=== PATIENT | male | born 1940 | race Caucasian/White ===

== ENCOUNTER 2018-06-10 14:11 | Emergency (ER) | payer OTHER ==
[~2018-06-10] VITALS: Ht 172.7 cm; Wt 65.9 kg
[2018-06-10 14:18] VITALS: Ht 172.7 cm; Wt 65.9 kg
[2018-06-10] MEDS ORDERED: LOPRESSOR25 MG PO (14:23)
[2018-06-10] MEDS ORDERED: ZOCOR40 MG PO (14:23)
[2018-06-10] MEDS ORDERED: OMEPRAZOLE20 M1 PO (14:24)
[2018-06-10 14:52] LABS: BASOPHILS 0.5 % (0-2); EOSINOPHILS 3.4 % (0-7); HEMATOCRIT 42.9 % (42.0-54.0); HEMOGLOBIN 14.6 g/dL (13.5-17.5); IMMATURE GRANULOCYTES 0.2 % (0-5); LYMPHOCYTES 21.7 % (15-50); MCH 32.2 pg (26.0-34.0); MCV 94.5 fL (80.0-100.0); MEAN PLATELET VOLUME 9.1 fL (7.4-10.4); MONOCYTES 7.5 % (2-11); NEUTROPHILS 66.7 % (40-80); PLATELET COUNT 210 10x3/uL (130-400); RBC 4.54 10x6/uL (4.20-6.10); RDW 13.3 % (11.5-14.5); WBC 6.5 10x3/uL (4.8-10.8)
[2018-06-10 15:16] LABS: ALBUMIN 3.7 g/dL (3.4-5.0); ALKALINE PHOSPHATASE 63 U/L (46-116); ALT (SGPT) 24 U/L (10-68); CALC OSMOLALITY 280 mosm/kg (275-300); CALCIUM 9.3 mg/dL (8.5-10.1); CARBON DIOXIDE 31.3 mmol/L (21.0-32.0); CHLORIDE - SERUM 103 mmol/L (98-107); CREATININE - SERUM 1.1 mg/dL (0.6-1.3); GLUCOSE 113 mg/dL (74-106); POTASSIUM - SERUM 4.2 mmol/L (3.5-5.1); PROTEIN - SERUM 7.6 g/dL (6.4-8.2); SODIUM 140 mmol/L (136-145); UREA NITROGEN 14 mg/dL (7-18); eGFR NON AFRICAN AMERICAN 68 mL/min (90-120)
[2018-06-10 15:31] LABS: CKMB 1.2 U/L (0.0-3.6)
[2018-06-10 15:35] LABS: TROPONIN-I < 0.017 ng/mL (0.000-0.060)
[2018-06-10 17:08] VITALS: BP 121/75
== END 2018-06-10 16:56 | disposition home or self-care (01) ==
LOC: D.ER 14:11
PROVIDERS: Emergency Medicine
DX: R07.9 Chest pain, unspecified (principal)

== ENCOUNTER 2018-06-22 23:30 | Emergency (ER) | payer OTHER ==
[~2018-06-22] VITALS: Ht 172.7 cm; Wt 70.5 kg
[~2018-06-22 23:30] MED LIST: LOPRESSOR25 MG PO; OMEPRAZOLE20 M1 PO; ZOCOR40 MG PO
[2018-06-22 23:33] VITALS: Ht 172.7 cm; Wt 70.5 kg
[2018-06-23] MEDS ORDERED: ACETAMINOPHEN500 M1 PO (02:12)
[2018-06-23] MEDS ORDERED: IBUPROFEN800 MG PO (02:12)
[2018-06-23] MEDS ORDERED: CYCLOBENZAPRINE10 MG PO (02:12)
[2018-06-23 02:51] VITALS: BP 140/77
== END 2018-06-23 02:28 | disposition home or self-care (01) ==
LOC: D.ER 23:30
DX: M25.561 Pain in right knee (principal); I10 Essential (primary) hypertension

== ENCOUNTER 2021-05-23 17:04 | Observation (INO) | payer OTHER ==
[~2021-05-23] VITALS: Ht 172.7 cm; Wt 70.9 kg
[~2021-05-23 17:04] MED LIST changes: +ACETAMINOPHEN500 M1 PO; +CYCLOBENZAPRINE10 MG PO; +IBUPROFEN800 MG PO
[2021-05-23 17:10] VITALS: Ht 172.7 cm; Wt 70.9 kg
[2021-05-23 17:47] LABS: CALC OSMOLALITY 281 mosm/kg (275-300); CALCIUM 8.8 mg/dL (8.5-10.1); CARBON DIOXIDE 29.1 mmol/L (21.0-32.0); CHLORIDE - SERUM 104 mmol/L (98-107); CREATININE - SERUM 1.4 mg/dL (0.6-1.3); GLUCOSE 125 mg/dL (74-106); POTASSIUM - SERUM 4.3 mmol/L (3.5-5.1); SODIUM 140 mmol/L (136-145); UREA NITROGEN 19 mg/dL (7-18); eGFR NON AFRICAN AMERICAN 51 mL/min (90-120)
[2021-05-23 18:05] LABS: ALBUMIN 3.4 g/dL (3.4-5.0); ALKALINE PHOSPHATASE 69 U/L (30-120); ALT (SGPT) 25 U/L (10-68); BILIRUBIN - TOTAL 0.42 mg/dL (0.2-1.3); CKMB 1.6 U/L (0.0-3.6); CREATINE KINASE 112 UL (21-232); MAGNESIUM - SERUM 2.6 mg/dL (1.8-2.4); PROTEIN - SERUM 7.3 g/dL (6.4-8.2)
[2021-05-23 18:06] LABS: TROPONIN-I < 0.017 ng/mL (0.000-0.060)
[2021-05-23 18:07] LABS: BASOPHILS 0.5 % (0-2); EOSINOPHILS 4.1 % (0-7); HEMATOCRIT 41.6 % (42.0-54.0); HEMOGLOBIN 13.9 g/dL (13.5-17.5); LYMPHOCYTES 14.5 % (15-50); MCH 31.9 pg (26.0-34.0); MCHC 33.4 g/dL (31.0-37.0); MCV 95.6 fL (80.0-100.0); MONOCYTES 15.9 % (2-11); RBC 4.34 10x6/uL (4.20-6.10); RDW 14.1 % (11.5-14.5); WBC 8.7 10x3/uL (4.8-10.8)
[2021-05-23 18:09] LABS: PLATELET COUNT 272 10x3/uL (130-400)
[2021-05-23 19:35] VITALS: BP 127/71
[2021-05-23 21:14] LABS: CKMB 1.3 U/L (0.0-3.6); CREATINE KINASE 102 UL (21-232); TROPONIN-I 0.026 ng/mL (0.000-0.060)
[2021-05-23 21:30] VITALS: BP 118/71
[2021-05-23 23:00] VITALS: BP 123/79
[2021-05-24] VITALS (8 sets, daily range): BP systolic 103–131; BP diastolic 49–69
--- NOTE | 2021-05-24 01:05 | NUR ---
REPORT GIVEN TO JACLYN JAMES
[2021-05-24 03:06] LABS: EOSINOPHILS 5.6 % (0-7); HEMATOCRIT 39.1 % (42.0-54.0); HEMOGLOBIN 13.2 g/dL (13.5-17.5); LYMPHOCYTES 14.3 % (15-50); MCH 32.4 pg (26.0-34.0); MCHC 33.9 g/dL (31.0-37.0); MCV 95.7 fL (80.0-100.0); MEAN PLATELET VOLUME 7.2 fL (7.4-10.4); MONOCYTES 13.8 % (2-11); NEUTROPHILS 65.3 % (40-80); PLATELET COUNT 248 10x3/uL (130-400); RBC 4.09 10x6/uL (4.20-6.10); RDW 13.8 % (11.5-14.5)
[2021-05-24 03:42] LABS: ALKALINE PHOSPHATASE 63 U/L (30-120); ALT (SGPT) 22 U/L (10-68); BILIRUBIN - TOTAL 0.52 mg/dL (0.2-1.3); CALC OSMOLALITY 281 mosm/kg (275-300); CALCIUM 8.4 mg/dL (8.5-10.1); CARBON DIOXIDE 26.7 mmol/L (21.0-32.0); CHLORIDE - SERUM 105 mmol/L (98-107); CKMB 1.1 U/L (0.0-3.6); CREATINE KINASE 88 UL (21-232); CREATININE - SERUM 1.2 mg/dL (0.6-1.3); GLUCOSE 115 mg/dL (74-106); PROTEIN - SERUM 6.6 g/dL (6.4-8.2); SODIUM 140 mmol/L (136-145); T4 THYROXIN - FREE 1.09 ng/dL (0.76-1.46); THYROID STIMULATING HORMONE 0.95 uIU/mL (0.36-3.74); TROPONIN-I < 0.017 ng/mL (0.000-0.060); UREA NITROGEN 18 mg/dL (7-18); eGFR NON AFRICAN AMERICAN 61 mL/min (90-120)
--- NOTE | 2021-05-24 04:13 | NUR ---
PT LYING IN BED RESTING AT THIS TIME. BREATHS EVEN, NO ACUTE DISTRESS NOTED, BD IN LOWEST POSITION, CALL LIGHT WITHIN REACH
[2021-05-24 08:34] LABS: CKMB 0.9 U/L (0.0-3.6); CREATINE KINASE 83 UL (21-232)
[2021-05-24 08:35] LABS: TROPONIN-I < 0.017 ng/mL (0.000-0.060)
--- NOTE | 2021-05-24 08:53 | HP ---
PATIENT: WILLIAM MICHEL MEDICAL RECORD: [id number] ACCOUNT: [id number] LOCATION:[facility] ShelleyT03- : 36 ADMISSION DATE: 05/23/21 PCP: LNADY TO MD HISTORY AND PHYSICAL EXAMINATION CHIEF COMPLAINT: Fast heart rate. HISTORY OF PRESENT ILLNESS: This is an 81-year-old white male who is followed by nurse practitioner locally presented to the hospital with a fast heart rate. The patient had been working outside at his home for a couple of hours earlier in the day, he came in. He and his went and got something to eat and then this afternoon his heart rate became very fast around 150 beats per minute. It did not let up and EMS brought him here with a heart rate of 165 beats a minute. EKG showed atrial flutter with a 2:1 block. He was placed on diltiazem drip and this got his heart rate down. He is admitted for further evaluation and cardiology has been consulted. PAST MEDICAL HISTORY: He has hypertension. He has a history of hyperlipidemia and he has BPH and he has some heartburn. The patient also states a couple of weeks ago he was diagnosed with S[place] spotted fever. He was treated with an antibiotic and completed that course. He is not sure what it was. He was also prescribed a methylprednisolone Dosepak and he did not complete that as he said he had an episode of tachycardia then with his heart rate going to 150 beats and that lasted about 15 minutes and then resolved. He has not had another episode of this fast heart rate until today. PAST SURGICAL HISTORY: He has had cataract repair. He has had eyelid surgery. He has had left shoulder repair. He has had right foot surgery times 2. He has had esophageal dilatation. DRUG ALLERGIES: None known. HOME MEDICATIONS: Metoprolol tartrate 25 mg twice a day, Simvastatin 40 mg once a day, omeprazole 20 mg once a day, and tamsulosin 0.4 mg once a day. HABITS: He is a former smoker. No alcohol or drugs. SOCIAL HISTORY: He is . He is a retired accountant manager. FAMILY HISTORY: Father at age 92. He did have high blood pressure. Mother at 88. She had Parkinson disease. A brother at 86. He had dementia, some other problems as well. REVIEW OF SYSTEMS: GENERAL: No major weight changes. HEENT: No particular sinus or allergy problems. RESPIRATORY: No history of asthma or emphysema. CARDIAC: He has seen Dr. Riggs when he had chest pain a few years ago; he went through stress tests and did not really have any known coronary disease. GASTROINTESTINAL: He has had the reflux and he had esophageal dilatation one time. MUSCULOSKELETAL: No significant joint aches and pains. NEUROLOGIC: No migraines or seizures. PSYCHIATRIC: Denies depression or melancholia. HISTORY AND PHYSICAL [id number] WILLIAM MICHEL PHYSICAL EXAMINATION: VITAL SIGNS: Temperature 97.9. His heart rate in the ER when he presented was 165, respirations were 18, blood pressure is not recorded. GENERAL: He is awake and alert. He does not appear to be in acute distress at this time. His is at bedside. SKIN: Warm and dry. HEENT: Grossly within normal limits. NECK: Supple. No JVD or bruit. HEART: Regular rate and rhythm without murmur. LUNGS: Clear. ABDOMEN: Soft, flat, nontender. EXTREMITIES: No edema. NEUROLOGIC: Intact. LABORATORY DATA: CBC with a white count of 8700, hemoglobin 13.9, hematocrit 41.6. Basic metabolic panel: Sodium 140, potassium 4.3, chloride 104, CO2 29.1, BUN 19, creatinine 1.4, glucose 125, calcium 8.8. Liver functions are all normal. Magnesium 2.6. Troponin less than 0.017. Chest x-ray shows no acute abnormality seen. EKG showed atrial flutter with 2:1 block. ASSESSMENT: 1. New onset atrial flutter. 2. History of hypertension. 3. History of hyperlipidemia. PLAN: He is on a Cardizem drip at this time. Cardiology has been consulted. We will check thyroid functions. Other tests or procedures as warranted. TRANSINT:[id number] Voice Confirmation ID: [id number] DOCUMENT ID: [id number] MARY HERNANDES MD at 0853 CC: [id number] DICTATION DATE: 05/23/211916 LOAN EXAMINER: 05/23/211947 ADM IN [facility] [address] [place] [address]
--- NOTE | 2021-05-25 07:50 | CN ---
PATIENT NAME:WILLIAM MICHEL MEDICAL RECORD: [id number] : 36 LOCATION:[facility]T03- ADMIT DATE: 05/23/21 ACCOUNT: [id number] CONSULTING PHYSICIAN: BETTIE LOPEZ MD REFERRING PHYSICIAN: MARY HERNANDES MD DATE OF CONSULTATION: 05/24/2021 HISTORY OF PRESENT ILLNESS: An 81-year-old gentleman with no known history of cardiovascular disease, has history of hypertension as well as hyperlipidemia. Cholesterol goal on current therapy, does not have a strong family history of coronary artery disease, admitted with palpitations, heart fluttering. He had been working outside, by his report not drinking as much as fluid he should. Additionally, he has been treated for S[place]y spotted fever over the past couple of weeks, found to be in atrial fibrillation with RVR. We are asked to see him concerning his cardiovascular status. PAST MEDICAL HISTORY: Includes; 1. History of hypertension, well controlled. 2. Dyslipidemia, goal on therapy. ALLERGIES: None known. MEDICATIONS: Include metoprolol 25 mg p.o. b.i.d., atorvastatin 40 mg p.o. every day, ibuprofen 800 t.i.d. p.r.n., omeprazole 20 mg p.o. every day as needed. SOCIAL HISTORY: Nonsmoker, nondrinker. Easily takes care of all his ADLs. Exercises walking 3 miles a day. FAMILY HISTORY: No strong family history of coronary artery disease. REVIEW OF SYSTEMS: The patient reports easy bruising but reports no swollen glands. The patient reports no fever, no night sweats, no significant weight gain, no significant weight loss. No significant exercise tolerance. The patient reports no dry eyes, no irritation, no vision change. Patient reports no difficulty hearing and no ear pain. Patient reports no frequent nose bleeds or nose and sinus problems. Patient reports on arm pain on exertion. No shortness of breath while lying down. No history of heart murmur. Patient reports no cough, no wheezing or coughing up blood. Patient reports no abdominal pain, no vomiting. Normal appetite. No diarrhea and not vomiting blood. No nausea and no constipation. Patient reports no incontinence. No difficulty urinating. No hematuria. No increased frequency. Patient reports no muscle aches. No weakness, no arthralgias, no back pain. No swelling of the extremities. Patient reports no abnormal mole, no jaundice, no rashes. Reports no loss of consciousness. No weakness and no numbness. No seizures, dizziness, or headaches. The patient reports no depression, no sleep disturbance, feeling safe in a relationship and no alcohol abuse. Patient reports on fatigue. Reports no runny nose or sinus pressure. No itching, no hives, and no frequent sneezing. PHYSICAL EXAMINATION: GENERAL: Pleasant. No acute distress, appears stated age, alert and oriented times 3. VITAL SIGNS: Blood pressure 121/58, pulse 59, irregular. HEENT: Normocephalic, atraumatic. Face is symmetric. Tongue midline. CONSULT REPORT [id number] WILLIAM MICHEL NECK: No bruits noted. HEART: Regular with a II/ systolic ejection murmur. LUNGS: Good air excursion. ABDOMEN: Soft and nontender. EXTREMITIES: Pulses 2+. No edema. NEUROLOGIC: Grossly intact. DIAGNOSTIC DATA: EKG initially atrial flutter 2:1, now sinus rhythm. IMPRESSION AND PLAN: Atrial flutter, suspect at least some component of increased catecholamine drive secondary to recent infection as well as intravascular volume depletion. Given isolated incident, we would not plan on using DOAC therapy at this point in time. We would give outpatient Cardizem for at least 4-6 weeks. If symptoms do not recur, suspect we can taper off this agent safely. TRANSINT:[id number] Voice Confirmation ID: [id number] DOCUMENT ID: [id number] BETTIE LOPEZ MD at 0750 CC: [id number] DICTATION DATE: 05/24/21901 VACUUM FURNACE OPERATOR: 05/24/21 09 DIS IN 05/24/21 [facility] [address] [place] [address]
== END 2021-05-24 09:44 | disposition home or self-care (01) ==
LOC: D.ER 17:04 → D.EDHOLD 17:53 → OBSVTIME 17:53 → D.EDHOLD 05-24 09:44
PROVIDERS: Family Medicine; ADMIT Family Medicine; ATTEND Family Medicine
DX: I48.92 Unspecified atrial flutter (principal); I10 Essential (primary) hypertension; E78.5 Hyperlipidemia, unspecified

== ENCOUNTER 2021-05-25 17:24 | Observation (INO) | payer OTHER ==
[~2021-05-25] VITALS: Ht 172.7 cm; Wt 68.2 kg
--- NOTE | 2021-05-25 17:47 | NUR ---
PATIENT WAS DISCHARGED HOME FROM ER HOLD YESTERDAY WITH PRESCRIPTION FOR DILTIAZEM TO CONTROL ATRIAL FLUTTER. STATES THAT THE PHARMACIST WAS UNABLE TO READ THE PRESCRIPTION WRITTEN BY [employer]EW[employer] POL[employer]ER AND IT DID NOT GET FILLED UNTIL TODAY. PATIENT TOOK A DOSE AT 1400 BUT WENT INTO ATRIAL FLUTTER.
[2021-05-25 17:48] LABS: HEMOGLOBIN 14.4 g/dL (13.5-17.5); MCHC 33.4 g/dL (31.0-37.0); MCV 95.7 fL (80.0-100.0); MEAN PLATELET VOLUME 6.9 fL (7.4-10.4); PLATELET COUNT 238 10x3/uL (130-400); RBC 4.49 10x6/uL (4.20-6.10); WBC 7.9 10x3/uL (4.8-10.8)
[2021-05-25 17:58] LABS: CALC OSMOLALITY 282 mosm/kg (275-300); CALCIUM 8.7 mg/dL (8.5-10.1); CARBON DIOXIDE 27.5 mmol/L (21.0-32.0); CHLORIDE - SERUM 104 mmol/L (98-107); CREATININE - SERUM 1.3 mg/dL (0.6-1.3); GLUCOSE 159 mg/dL (74-106); POTASSIUM - SERUM 4.5 mmol/L (3.5-5.1); SODIUM 139 mmol/L (136-145); UREA NITROGEN 18 mg/dL (7-18); eGFR NON AFRICAN AMERICAN 56 mL/min (90-120)
[2021-05-25 18:08] LABS: ALBUMIN 3.4 g/dL (3.4-5.0); ALKALINE PHOSPHATASE 69 U/L (30-120); ALT (SGPT) 29 U/L (10-68); BILIRUBIN - TOTAL 0.52 mg/dL (0.2-1.3); MAGNESIUM - SERUM 2.5 mg/dL (1.8-2.4); PROTEIN - SERUM 7.5 g/dL (6.4-8.2); TROPONIN-I < 0.017 ng/mL (0.000-0.060)
[2021-05-25 18:11] LABS: EOSINOPHILS 7 % (0-7); LYMPHOCYTES 24 % (15-50); MONOCYTES 9 % (2-11); NEUTROPHILS 60 % (40-80); PLATELET ESTIMATE NORMAL
--- NOTE | 2021-05-25 18:13 | NUR ---
DILTIAZEM 15MG BOLUS AND INFUSION AT 5MG/HR GIVEN. HR 110, ATRIAL FLUTTER WITH VARIABLE CONDUCTION.
[2021-05-25 19:12] VITALS: BP 120/68
[2021-05-25 20:01] VITALS: BP 115/52
[2021-05-25 20:30] VITALS: BP 120/69
[2021-05-25 21:01] VITALS: BP 113/44
[2021-05-25 21:30] VITALS: BP 110/66
[2021-05-26] VITALS (12 sets, daily range): BP systolic 97–142; BP diastolic 55–88; Ht 172.7 cm; Wt 68.2 kg
--- NOTE | 2021-05-26 00:27 | NUR ---
PATIENT NOW IN SINUS RHYTHM. EKG NOW
--- NOTE | 2021-05-26 07:23 | NUR ---
AWAKE AND ALERT DENIES PAIN OR DISCOMFORT. REQUESTED A DRINK- WATER AND COLA GIVEN. AWAITING TRANSFER TO [facility].
--- NOTE | 2021-05-26 13:30 | NUR ---
PAGED DR CARTER FOR DC ORDERS D/T CARDIOLOGY CONSULT DONE
[2021-05-26] MEDS ORDERED: CARDIZEM60 MG PO (13:50)
[2021-05-27] MEDS ORDERED: CARDIZEM LA120 M1 PO (12:21)
[2021-05-27] MEDS ORDERED: ELIQUIS2.5 MG PO (12:21)
[2021-05-27] MEDS ORDERED: BAYER CHEWABLE81 MG PO (15:05)
--- NOTE | 2021-05-27 18:05 | MORECARE ---
CASE MANAGEMENT DISCHARGE SUMMARY PATIENT: WILLIAM MICHEL UNIT: [id number] ADM DATE: 05/25/21 AGE: 81 : 38 SEX: M ROOM/BED: D.T04 AUTHOR: VIJI,DOC PHYSICIAN: REFERRING PHYSICIAN: MELINDA CARTER MD DATE OF SERVICE: 05/27/21 Case Management Discharge Planning Summary DCP REVIEW SUMMARY ANTICIPATED D/C DATE: EXPECTED LOS : CASE STATUS: DCP Not started INITIAL REVIEW: 05/25/2021 INITIAL REVIEWER: Sherley Marlow FINAL DISCHARGE DISPOSITION: : FINAL REVIEWER: FINAL REVIEW DATE: DCP [employer] Questions & Answers QUESTION: ANSWER : PATIENT: WILLIAM MICHEL ENCOUNTER: [id number] MEDICAL RECORD#: [id number] ADMISSION DATE: 05/25/2021 DISCHARGE DATE: 05/26/2021 ATTENDING MD: MELINDA MARIN : AGE: 81 MARITAL STATUS: M DC PLAN ID: [id number] FACILITY: [facility] PRINTED ON: 05/27/21 18:05 CT All edits/amendments must be made on the electronic document DICTATION DATE: 05/27/211803 COUNCILPERSON: DM 05/27/211803 RPT#: [id number] DC DATE:05/26/21 STATUS: DIS IN [place] [id number] [place] [id number] END OF REPORT
== END 2021-05-26 14:10 | disposition home or self-care (01) ==
LOC: D.ER 17:24 → OBSVTIME 19:27 → D.EDHOLD 19:27
PROVIDERS: Emergency Medicine; ADMIT Family Medicine; ATTEND Family Medicine
DX: I48.92 Unspecified atrial flutter (principal); I10 Essential (primary) hypertension; E78.5 Hyperlipidemia, unspecified

== ENCOUNTER 2021-05-27 10:33 | Inpatient (IN) | payer OTHER ==
[~2021-05-27] VITALS: Ht 172.7 cm; Wt 68.2 kg
[~2021-05-27 10:33] MED LIST changes: +CARDIZEM60 MG PO
[2021-05-27 10:49] VITALS: BP 142/71
[2021-05-27 11:05] LABS: HEMATOCRIT 41.8 % (42.0-54.0); HEMOGLOBIN 14.2 g/dL (13.5-17.5); MCH 32.4 pg (26.0-34.0); MCHC 33.9 g/dL (31.0-37.0); MCV 95.6 fL (80.0-100.0); MEAN PLATELET VOLUME 7.6 fL (7.4-10.4); PLATELET COUNT 236 10x3/uL (130-400); RBC 4.38 10x6/uL (4.20-6.10); RDW 13.9 % (11.5-14.5)
--- NOTE | 2021-05-27 11:10 | NUR ---
20guage saline lock started. cardizem push and then cardizem drip started. patient is awake alert and orientated. attentive at bedside.
[2021-05-27 11:26] LABS: CALC OSMOLALITY 281 mosm/kg (275-300); CARBON DIOXIDE 29.6 mmol/L (21.0-32.0); CHLORIDE - SERUM 104 mmol/L (98-107); CREATININE - SERUM 1.2 mg/dL (0.6-1.3); GLUCOSE 114 mg/dL (74-106); POTASSIUM - SERUM 3.9 mmol/L (3.5-5.1); SODIUM 140 mmol/L (136-145); UREA NITROGEN 18 mg/dL (7-18); eGFR NON AFRICAN AMERICAN 61 mL/min (90-120)
[2021-05-27 11:35] VITALS: BP 142/71
[2021-05-27 11:41] LABS: ALBUMIN 3.1 g/dL (3.4-5.0); ALKALINE PHOSPHATASE 68 U/L (30-120); ALT (SGPT) 26 U/L (10-68); BILIRUBIN - TOTAL 0.38 mg/dL (0.2-1.3); CKMB 1.1 U/L (0.0-3.6); CREATINE KINASE 67 UL (21-232); MAGNESIUM - SERUM 2.4 mg/dL (1.8-2.4)
[2021-05-27 11:43] LABS: TROPONIN-I < 0.017 ng/mL (0.000-0.060)
[2021-05-27] MEDS ORDERED: CARDIZEM LA120 M1 PO (12:21)
[2021-05-27] MEDS ORDERED: ELIQUIS2.5 MG PO (12:21)
--- NOTE | 2021-05-27 12:29 | NUR ---
OOB AND AMBULATED TO BR- TOLERATED WELL WITH THE EXCEPTION OF THE HEART RATE INCREASING- DISCHARGE CANCELLED.
--- NOTE | 2021-05-27 12:48 | NUR ---
Lopressor ivp given tolerated well.
[2021-05-27 13:40] LABS: BASOPHILS 2 % (0-2); EOSINOPHILS 3 % (0-7); LYMPHOCYTES 15 % (15-50); MONOCYTES 2 % (2-11); NEUTROPHILS 76 % (40-80)
[2021-05-27 13:44] LABS: PLATELET ESTIMATE NORMAL; POLYCHROMASIA OCC
[2021-05-27 14:16] LABS: CKMB 0.7 U/L (0.0-3.6); CREATINE KINASE 65 UL (21-232); TROPONIN-I < 0.017 ng/mL (0.000-0.060)
--- NOTE | 2021-05-27 15:00 | NUR ---
RECEIVED PT TO ROOM 2114 VIA STRETCHER, PT ABLE TO AMBULATE FROM STRETCHER TO BED WITH MINIMAL ASSIST. PT A/O X4, RESP EVEN AND NONLABORED ON RA. LT WRIST INFUSING CARDIZEM AT 10. ORIENTED PT TO ROOM AND CALL LIGHT, WILL ASSESS PT AND START PLAN OF CARE.
[2021-05-27] MEDS ORDERED: BAYER CHEWABLE81 MG PO (15:05)
[2021-05-27 15:18] VITALS: BP 117/70; BMI 22.8
[2021-05-27 16:23] VITALS: Ht 172.7 cm; Wt 68.2 kg
[2021-05-27 20:18] LABS: CKMB 0.7 U/L (0.0-3.6); CREATINE KINASE 59 UL (21-232); TROPONIN-I < 0.017 ng/mL (0.000-0.060)
[2021-05-27 20:28] VITALS: BP 107/58
--- NOTE | 2021-05-28 00:50 | NUR ---
CARDIZEM GTT STOPPED, PT HR 51 SINUS CURRENTLY
[2021-05-28 01:42] VITALS: BP 111/66
[2021-05-28 03:08] LABS: CKMB 0.7 U/L (0.0-3.6); CREATINE KINASE 50 UL (21-232)
[2021-05-28 03:15] LABS: TROPONIN-I < 0.017 ng/mL (0.000-0.060)
--- NOTE | 2021-05-28 04:22 | NUR ---
HR 68 SR ON TELEMETRY, IV SALINE LOCKED
[2021-05-28 06:20] VITALS: BP 120/76
[2021-05-28 06:34] LABS: BASOPHILS 0.6 % (0-2); EOSINOPHILS 6.2 % (0-7); HEMATOCRIT 38.2 % (42.0-54.0); LYMPHOCYTES 11.8 % (15-50); MCH 32.3 pg (26.0-34.0); MEAN PLATELET VOLUME 6.9 fL (7.4-10.4); MONOCYTES 11.3 % (2-11); NEUTROPHILS 70.1 % (40-80); PLATELET COUNT 216 10x3/uL (130-400); RBC 4.02 10x6/uL (4.20-6.10); RDW 13.8 % (11.5-14.5); WBC 8.4 10x3/uL (4.8-10.8)
--- NOTE | 2021-05-28 06:39 | NUR ---
I have reviewed this patient and I concur with the Shift Assessment completed by the Licensed Practical Nurse today this shift.
[2021-05-28 06:50] LABS: ALBUMIN 2.8 g/dL (3.4-5.0); ANION GAP 11.5 mmol/L (8-16); BILIRUBIN - TOTAL 0.44 mg/dL (0.2-1.3); CALCIUM 8.8 mg/dL (8.5-10.1); CARBON DIOXIDE 27.8 mmol/L (21.0-32.0); CREATININE - SERUM 1.2 mg/dL (0.6-1.3); POTASSIUM - SERUM 4.3 mmol/L (3.5-5.1); PROTEIN - SERUM 6.4 g/dL (6.4-8.2)
[2021-05-28 08:36] VITALS: BP 137/69
--- NOTE | 2021-05-28 09:34 | NUR ---
AM MEDS GIVEN AT THIS TIME. PT SITTIN UP IN BED FIXING TO EAT BREAKFAST. PT A/O X4, RESP EVEN AND NONLABORED ON RA. SR-70 ON TELE. RT WRIST IV SL. PT DENIES ANY NEEDS AT THIS TIME. CALL LIGHT IN REACH, WILL CONTINUE PLAN OF CARE.
[2021-05-28 11:45] VITALS: BP 121/72
--- NOTE | 2021-05-28 15:24 | NUR ---
PT RESTING COMFORTABLY IN BED, PROVIDED PT WITH CY, DENIES ANY OTHER NEEDS AT THIS TIME. SPOUSE AT BEDSIDE, CALL LIGHT IN REACH.
[2021-05-28 15:54] VITALS: BP 127/74
--- NOTE | 2021-05-28 19:34 | NUR ---
RECIEVED UP IN BED WITH HOB ELEVATED. ALERT AND ORIENTED. UP AD MAGDALENO. DENIES ANY NEEDS AT THIS TIME.
[2021-05-28 20:00] VITALS: BP 140/86
[2021-05-29] VITALS: BP 124/79
[2021-05-29 05:26] VITALS: BP 128/82
[2021-05-29] MEDS ORDERED: BETAPACE 80 MG80 MG PO (07:42)
[2021-05-29] MEDS ORDERED: ELIQUIS2.5 MG PO (07:49)
--- NOTE | 2021-05-29 08:48 | NUR ---
AMBULATES HALLWAY. REMAINS IN SR. WILL CONT. PLAN OF CARE.
[2021-05-29 09:17] VITALS: BP 126/82
--- NOTE | 2021-05-29 10:05 | NUR ---
IV AND TELEMETRY DCD. DC PLANS GIVEN. UNDERSTANDING VOICED. ESCORTED TO CAR BY W/C.
== END 2021-05-29 10:06 | disposition home or self-care (01) | DRG 309 ==
LOC: D.ER 10:33 → D.M2 12:41 → OBSVTIME 12:41 → D.M2 12:41
PROVIDERS: Family Medicine; ADMIT Family Medicine; ATTEND Family Medicine
DX: I48.92 Unspecified atrial flutter (principal); A77.0 Spotted fever due to Rickettsia rickettsii; I48.91 Unspecified atrial fibrillation; I10 Essential (primary) hypertension; E78.5 Hyperlipidemia, unspecified; Z87.891 Personal history of nicotine dependence